=== PATIENT | male | born 1950 | race Caucasian/White ===

== ENCOUNTER → 2023-01-27 11:25 | Outpatient (CLI) | payer MEDICARE, SELFPAY ==
--- NOTE | 2023-01-27 12:03 | DI.DEXA.S_ITS ---
Bone Density Report Name: SOFIA HOWARD Age: 72 Sex: Male Ethnicity: White Date of : 1950 Indication: screening for osteoporosis; Referring Provider: RANJANA CHADWICK P.A.-C Study: Bone densitometry was performed. Exam Date: January 27, 2023 Accession number: [id number] Bone Density: Region BMD T-score Z-score Classification AP Spine(L1-L4) 1.095 0.4 0.9 Normal Femoral Neck (Left) 0.662 -1.7 -0.8 Osteopenia Total Hip (Left) 0.796 -1.2 -0.9 Osteopenia Femoral Neck (Right) 0.732 -1.1 -0.3 Osteopenia Total Hip (Right) 0.909 -0.3 -0.1 Normal Total Hip Mean 0.852 -0.8 -0.5 Normal World Health Organization criteria for BMD impression classify patients as: Normal (T-score at or above -1.0), Osteopenia (T-score between -1.0 and -2.5), or Osteoporosis (T-score at or below -2.5). 10-year Fracture Risk(1): Major Osteoporotic Fracture 7.6% Hip Fracture 1.9% Reported Risk Factors: [place] (), Neck BMD=0.662, BMI=28.7 (1) FRAX(R) Version 3.08. Fracture probability calculated for an untreated patient. Fracture probability may be lower if the patient has received treatment. Impression: The patient has low bone mass, based on the Left Femoral Neck T-score. The patient has an estimated ten-year risk of hip fracture of 1.9% and an estimated ten-year risk of major fracture of 7.6%, based on the WHO FRAX algorithm. Discussion: BONE DENSITY IS LOW AT ONE OR MORE SKELETAL SITES. This patient's lowest T-score is low at one or more skeletal sites. It meets the World Health Organization's (WHO) criteria for ?low bone mass? (T-score between -1.0 and -2.5). The patient's 10-year risk of fracture as calculated by FRAX is less than the threshold where pharmacological therapy is recommended by the National Osteoporosis Foundation (NOF). However, all treatment decisions require clinical judgment and consideration of individual patient factors, including patient preferences, comorbidities, previous drug use, risk factors not captured in the FRAX model (e.g., frailty, falls, vitamin D deficiency, increased bone turnover, interval significant decline in bone density) and possible under or overestimation of fracture risk by FRAX. The patient should follow a healthful lifestyle (good nutrition with adequate calcium and vitamin D, and appropriate weight-bearing exercise). Follow-Up: Consider repeating this study in 2 to 3 years to reassess this patient's status, or sooner if there is some new clinical indication. Reported by: CLIFF VIVAS M.D on 01/27/2023 12:10:00 PM.
== END ==
PROVIDERS: PCP Nurse Practitioner Family; Referring Provider Physician Assistant; Visit Provider Physician Assistant
DX: C90.00 Multiple myeloma not having achieved remission; Z13.820 Encounter for screening for osteoporosis; M85.852 Other specified disorders of bone density and structure, left thigh
CPT/HCPCS: 77080

== ENCOUNTER → 2023-11-04 08:37 | Outpatient (CLI) | payer MEDICARE, SELFPAY ==
--- NOTE | 2023-11-04 08:39 | DI.US.S_ITS ---
PROCEDURE: US ABDOMEN LIMITED INDICATIONS: Localized swelling, mass and lump, trunk TECHNIQUE: Real-time scanning was performed of the scapular region and flank, with image documentation. COMPARISON: None. FINDINGS: Left chest wall near the scapula, ill-defined mass measuring 4 x 3.2 x 3 cm. Lesion appears to extend to the intercostal space. No internal vascularity is identified. This corresponds to the palpable abnormality. No abnormality identified at the right flank in the region of clinical concern. IMPRESSION: 1. Ill-defined mass at the left chest wall measuring 4 cm. No internal vascularity is seen. This corresponds to the palpable abnormality. Patient reports this has been present for several years and denies pain. Benign and malignant masses are in the differential diagnosis. Recommend CT chest with IV contrast for further evaluation. 2. No mass seen at the right flank in the region of clinical concern. Dictated by: Geoff Thibodeaux M.D. on 11/04/2023 at 10:23 Approved by: Geoff Thibodeaux M.D. on 11/04/2023 at 11:23
== END ==
PROVIDERS: PCP Family Medicine; Referring Provider Nurse Practitioner Family; Visit Provider Nurse Practitioner Family
DX: R22.2 Localized swelling, mass and lump, trunk (principal)
CPT/HCPCS: 76705